=== PATIENT | female | born 1960 | race Caucasian/White ===

== ENCOUNTER → 2021-07-27 | Outpatient (CLI) | payer OTHER ==
[~2021-07-27] MED LIST: HYGROTON25 MG PO; K-DUR 2020 MEQ PO; MEDROL 4MG DOSPA4 MG; NORCO 325 MG-7.1 TAB PO; PREDNISONE10 MG PO; TOPROL XL 50MG50 MG PO; ZITHROMAX Z PA250 MG PO
== END ==
LOC: COL.RAD 07:28
DX: S83.241A Other tear of medial meniscus, current injury, right knee, initial encounter (principal); M94.261 Chondromalacia, right knee; M23.90 Unspecified internal derangement of unspecified knee

== ENCOUNTER 2022-02-10 15:26 | Outpatient (CLI) | payer OTHER ==
[~2022-02-10] VITALS: Ht 165.1 cm; Wt 95.5 kg
[2022-02-10 16:15] LABS: HEMATOCRIT 43.9 % (37.0-47.0); HEMOGLOBIN 14.9 g/dl (12.5-16.0); MEAN CELL VOLUME 90 fl (80.0-100.0); MEAN CORPUSCULAR HEMOGLOBIN 31 pg (27-31); MEAN CORPUSCULAR HGB CONC 34 g/dl (33.0-37.0); MEAN PLATELET VOLUME 8.6 fl (7.4-10.4); PLATELET COUNT 354 K/mm3 (130-400); RED BLOOD COUNT 4.89 M/mm3 (4.10-5.30); REDCELL DISTRIBUTION WIDTH-CV 13.2 % (11.5-14.5)
[2022-02-10] MEDS ORDERED: GLUCOPHAGE1000 MG PO (16:16)
[2022-02-10] MEDS ORDERED: GLUCOPHAGE500 MG/TAB PO (16:17)
[2022-02-10] MEDS ORDERED: ALDACTONE50 MG PO (16:19)
[2022-02-10] MEDS ORDERED: VITAMIN D31000 I1 PO (16:20)
[2022-02-10 16:28] LABS: ALBUMIN 4.1 gm/dL (3.5-5.0); BILIRUBIN,TOTAL 0.9 mg/dL (0.2-1.2); CALCIUM 8.9 mg/dL (8.4-10.2); CREATININE, serum 0.88 mg/dL (0.57-1.11); POTASSIUM 3.2 mmol/L (3.5-4.5); TOTAL PROTEIN 7.4 gm/dL (6.2-8.1)
[2022-02-10 16:30] VITALS: BP 133/83; PULSE 103; TEMP 100.5
[2022-02-10] MEDS ORDERED: CELEBREX 1100 MG/CAP PO (17:06)
[2022-02-10 17:14] LABS: ERYTHROCYTE SEDIMENTATION RATE 5 mm/hr (0-30)
== END 2022-02-10 17:36 ==
LOC: EUO 15:26
PROVIDERS: Family Medicine
DX: K52.9 Noninfective gastroenteritis and colitis, unspecified (principal); E86.0 Dehydration
CPT/HCPCS: J7030